=== PATIENT | male | born 1970 | race Caucasian/White ===

== ENCOUNTER 2020-06-29 18:37 | Emergency (ER) | payer OTHER ==
[2020-06-29] MEDS ORDERED: AUGMENTIN 875-1 EACH PO (21:36)
== END 2020-06-29 21:53 | disposition home or self-care (01) ==
LOC: FER 18:37
DX: S61.452A Open bite of left hand, initial encounter (principal); Y04.1XXA Assault by human bite, initial encounter; Y92.89 Other specified places as the place of occurrence of the external cause; Y99.0 Civilian activity done for income or pay; Z23 Encounter for immunization
CPT/HCPCS: 73110; 73130; 90471; 90715